=== PATIENT | female | born 1950 | race Caucasian/White ===

== ENCOUNTER 2017-08-10 05:59 | Emergency (ER) | payer MEDICARE, OTHER ==
[~2017-08-10] VITALS: Ht 162.6 cm; Wt 68.0 kg
--- NOTE | 2017-08-10 06:12 | PD ---
HPI Chief Complaint: BA Time Seen by Provider: 06:10 Travel History International Travel<30 days: No Contact w/Intl Traveler<30days: No Traveled to known affect area: No History of Present Illness HPI 67-year-old female presents under Cameron act initiated by the Police Department. According to her paperwork she was driving on the wrong side of the road and almost to the police car. She reportedly did not know where she was or how she got there and she also reportedly urinated on herself. The patient reports that she is from [facility]. She was in [place] yesterday at [email or web address] by herself. She reports that initially she went to [place] in order to do an animal correction and adopt a cat. She ended up not adopting a cat and then she spent the day at [email or web address]. She reports that she was driving home this evening and she became quite tired and pulled over on the side of the road several times. She understands that she was brought here tonight because she was driving erratically. She reports that she was driving erratically because she was tired. She seems pleasantly confused during examination. Symptoms are moderate, no obvious aggravating or alleviating factors. She reports a history of "heart, thyroid problems" and allergies to Abilify and penicillin. She reports that she lives alone in [place]. No other complaints. [facility] Social History Alcohol Use: No Tobacco Use: No Substance Use: No Allergies-Medications (Allergen,Severity, Reaction): Coded Allergies: aripiprazole (Verified Allergy, Unknown, 08/10/17) penicillin G (Verified Allergy, Unknown, 08/10/17) Reported Meds & Prescriptions Reported Meds & Active Scripts Active Reported Lasix (Furosemide) 40 Mg Tab 40 Mg PO DAILY Levothyroxine (Levothyroxine Sodium) 75 Mcg Tab 75 Mcg PO DAILY Spironolactone 25 Mg Tab 25 Mg PO DAILY Xanax (Alprazolam) 0.5 Mg Tab 0.5 Mg PO Q4H PRN Gabapentin 300 Mg Cap 300 Mg PO BID Effexor XR 24 HR (Venlafaxine HCl) 150 Mg Cap 150 Mg PO DAILY Review of Systems Except as stated in HPI: all other systems reviewed are Neg Physical Exam Narrative GENERAL: Pleasant well-developed well-nourished female no acute distress who is alert and oriented to person place and time. She is confused in regards to her ability to provide an accurate history. SKIN: Warm and dry. HEAD: Atraumatic. Normocephalic. EYES: Pupils equal and round. No scleral icterus. No injection or drainage. ENT: No nasal bleeding or discharge. Mucous membranes pink and moist. NECK: Trachea midline. No JVD. CARDIOVASCULAR: Regular rate and rhythm. No murmur appreciated. RESPIRATORY: No accessory muscle use. Clear to auscultation. Breath sounds equal bilaterally. GASTROINTESTINAL: Abdomen soft, non-tender, nondistended. Hepatic and splenic margins not palpable. MUSCULOSKELETAL: No obvious deformities. No clubbing. No cyanosis. No edema. NEUROLOGICAL: Awake and alert. No obvious cranial nerve deficits. Motor grossly within normal limits. Normal speech. PSYCHIATRIC: Appropriate mood and affect; insight and judgment normal. Data Data Last Documented VS Vital Signs Date Time Temp Pulse Resp B/P (MAP) Pulse Ox O2 Delivery O2 Flow Rate FiO2 08/11/17 17:55 08/11/17 11:00 97.8 74 18 99 Room Air Orders Orders Complete Blood Count With Diff (08/10/17 06:12) Comprehensive Metabolic Panel (08/10/17 06:12) Thyroid Stimulating Hormone (08/10/17 06:12) Urinalysis - C+S If Indicated (08/10/17 06:12) Psych Screen (08/10/17 06:12) Drug Screen, Random Urine (08/10/17 06:12) Alcohol (Ethanol) (08/10/17 06:12) Ct Brain W/O Iv Contrast(Rout) (08/10/17 ) Diet Regular Basic (08/10/17 Breakfast) Diet Regular Basic (08/10/17 Lunch) Gabapentin (Neurontin) (08/10/17 17:15) Venlafaxine Xr (Effexor Xr) (08/10/17 17:15) Gabapentin (Neurontin) (08/10/17 19:00) Furosemide (Lasix) (08/10/17 19:00) Alprazolam (Xanax) (08/10/17 19:00) Levothyroxine (Synthroid) (08/11/17 06:00) Gabapentin (Neurontin) (08/11/17 06:00) Spironolactone (Aldactone) (08/11/17 06:00) Venlafaxine Xr (Effexor Xr) (08/11/17 06:00) Furosemide (Lasix) (08/11/17 06:00) Nicotine 21 Mg Patch.24 Hr (Habitrol 21 (08/10/17 19:30) Diet Regular Basic (08/11/17 Breakfast) Diet Regular Basic (08/11/17 Lunch) Ed Discharge Order (08/11/17 16:18) Labs Laboratory Tests Test 08/10/17 06:20 White Blood Count 9.6 TH/MM3 Red Blood Count 3.81 MIL/MM3 Hemoglobin 11.1 GM/DL Hematocrit 33.4 % Mean Corpuscular Volume 87.5 FL Mean Corpuscular Hemoglobin 29.2 PG Mean Corpuscular Hemoglobin Concent 33.4 % Red Cell Distribution Width 19.0 % Platelet Count 137 TH/MM3 Mean Platelet Volume 11.8 FL Neutrophils (%) (Auto) 60.6 % Lymphocytes (%) (Auto) 24.8 % Monocytes (%) (Auto) 14.0 % Eosinophils (%) (Auto) 0.1 % Basophils (%) (Auto) 0.5 % Neutrophils # (Auto) 5.8 TH/MM3 Lymphocytes # (Auto) 2.4 TH/MM3 Monocytes # (Auto) 1.3 TH/MM3 Eosinophils # (Auto) 0.0 TH/MM3 Basophils # (Auto) 0.0 TH/MM3 CBC Comment AUTO DIFF Differential Comment AUTO DIFF CONFIRMED Platelet Estimate NORMAL Platelet Morphology Comment ENLARGED Polychromasia 2.1 % Ovalocytes 2+ Acanthocytes OCC Keratocytes OCC Urine Color LIGHT-YELLOW Urine Turbidity HAZY Urine pH 5.0 Urine Specific [place] 1.006 Urine Protein TRACE mg/dL Urine Glucose (UA) NEG mg/dL Urine Ketones NEG mg/dL Urine Occult Blood NEG Urine Nitrite NEG Urine Bilirubin NEG Urine Urobilinogen LESS THAN 2.0 MG/DL Urine Leukocyte Esterase MOD Urine RBC LESS THAN 1 /hpf Urine WBC 3 /hpf Urine Squamous Epithelial Cells 7 /hpf Urine Bacteria OCC /hpf Urine Mucus FEW /lpf Microscopic Urinalysis Comment CULT NOT INDICATED Blood Urea Nitrogen 13 MG/DL Creatinine 1.44 MG/DL Random Glucose 114 MG/DL Total Protein 8.3 GM/DL Albumin 4.0 GM/DL Calcium Level 9.1 MG/DL Alkaline Phosphatase 103 U/L Aspartate Amino Transf (AST/SGOT) 33 U/L Alanine Aminotransferase (ALT/SGPT) 21 U/L Total Bilirubin 1.0 MG/DL Sodium Level 141 MEQ/L Potassium Level 3.6 MEQ/L Chloride Level 107 MEQ/L Carbon Dioxide Level 23.3 MEQ/L Anion Gap 11 MEQ/L Estimat Glomerular Filtration Rate 36 ML/MIN Thyroid Stimulating Hormone 3rd Gen 2.100 uIU/ML Urine Opiates Screen NEG Urine Barbiturates Screen NEG Urine Amphetamines Screen NEG Urine Benzodiazepines Screen POS Urine Cocaine Screen NEG Urine Cannabinoids Screen POS Ethyl Alcohol Level LESS THAN 3 MG/DL MDM Medical Decision Making Medical Screen Exam Complete: Yes Emergency Medical Condition: Yes Medical Record Reviewed: Yes Differential Diagnosis Dementia, UTI, encephalitis, acute psychosis, substance-induced mood disorder, fatigue Narrative Course 67-year-old female presents under Cameron act for psychiatric evaluation. Mental health screening discussed with the patient. Psychiatric screen ordered. Diagnosis Primary Impression: Medical clearance for psychiatric admission Alexandre Fraser Aug 10, 2017 06:12
[2017-08-10 06:26] VITALS: BP_SYST 166; BP_SYST 180; BP_DIAS 78; BP_DIAS 83; PULSE 79; RESP 16; TEMP 98.2; O2SAT 97
[2017-08-10 06:52] LABS: AUTOMATED NEUTROPHIL # 5.8 TH/MM3 (1.8-7.7); BASOPHIL % 0.5 % (0.0-2.0); EOSINOPHIL % 0.1 % (0.0-4.0); HEMATOCRIT 33.4 % (35.0-46.0); HEMOGLOBIN 11.1 GM/DL (11.6-15.3); LYMPH % 24.8 % (9.0-44.0); LYMPHOCYTE # 2.4 TH/MM3 (1.0-4.8); MEAN CELL VOLUME 87.5 FL (80.0-100.0); MEAN CORPUSCULAR HEMOGLOBIN 29.2 PG (27.0-34.0); MEAN CORPUSCULAR HGB CONC 33.4 % (32.0-36.0); MEAN PLATELET VOLUME 11.8 FL (7.0-11.0); MONOCYTE # 1.3 TH/MM3 (0-0.9); NEUT % 60.6 % (16.0-70.0); RED BLOOD COUNT 3.81 MIL/MM3 (4.00-5.30); WHITE BLOOD COUNT 9.6 TH/MM3 (4.0-11.0)
--- NOTE | 2017-08-10 07:13 | RADRPT ---
EXAM DATE: 08/10/2017 7:07 AM EDT AGE/SEX: 67 years / Female INDICATIONS: Altered mental status CLINICAL DATA: This is the patient's initial encounter. Patient reports that signs and symptoms have been present for 1 day and indicates a pain score of 0/10. MEDICAL/SURGICAL HISTORY: None. None. RADIATION DOSE: 33.99 CTDI (mGy) COMPARISON: No prior exams available for comparison. TECHNIQUE: CT of the head without contrast. Using automated exposure control and adjustment of the mA and/or kV according to patient size, radiation dose was kept as low as reasonably achievable to ob tain optimal diagnostic quality images. FINDINGS: Cerebrum: The ventricles are normal for age. No evidence of midline shift, mass lesion, hemorrhage or acute infarction. No extraaxial fluid collections are seen. Posterior Fossa: The cerebellum and brainstem are intact. The 4th ventricle is midline. The cerebe llopontine angle is unremarkable. Extracranial: The visualized portion of the orbits is intact. Skull: The calvaria is intact. No evidence of skull fracture. CONCLUSION: 1. No acute intracranial abnormalities. Electronically signed by: Benjamin Green MD 08/10/2017 7:11 AM EDT
[2017-08-10 07:16] LABS: ALKALINE PHOSPHATASE 103 U/L (45-117); TOTAL PROTEIN 8.3 GM/DL (6.4-8.2)
[2017-08-10 07:19] LABS: ALT (GPT) 21 U/L (10-53); AST (GOT) 33 U/L (15-37); BICARBONATE 23.3 MEQ/L (21.0-32.0); BLOOD UREA NITROGEN 13 MG/DL (7-18); CALCIUM 9.1 MG/DL (8.5-10.1); CHLORIDE 107 MEQ/L (98-107); CREATININE 1.44 MG/DL (0.50-1.00); GLOMERULAR FILTRATION RATE 36 ML/MIN (>89); GLUCOSE,RANDOM 114 MG/DL (74-106); SODIUM (NA) 141 MEQ/L (136-145)
[2017-08-10 07:26] LABS: BACTERIA, URINE OCC /hpf; BILIRUBIN, URINE NEG (NEG); BLOOD, URINE NEG (NEG); GLUCOSE,URINE NEG (NEG); KETONE, URINE NEG (NEG); MUCUS URINE FEW /lpf (OCC); NITRITE,URINE NEG (NEG); SQUAMOUS EPITHELIAL CELL URINE 7 /hpf (0-5); URINE COLOR LIGHT-YELLOW (YELLW/STRAW); URINE LEUKOCYTE ESTERASE MOD (NEG)
[2017-08-10 07:47] LABS: PLATELET COUNT 137 TH/MM3 (150-450)
[2017-08-10 07:52] LABS: ACANTHOCYTES OCC (NORMAL); KERATOCYTES OCC (NORMAL); OVALOCYTES 2+ (NORMAL); POLYCHROMASIA 2.1 % (0.0-1.9)
--- NOTE | 2017-08-10 07:52 | PD ---
Physical Exam Narrative Patient was signed out to me pending CT and laboratory results. Please see previous providers note for full H&P. Data Data Last Documented VS Vital Signs Date Time Temp Pulse Resp B/P (MAP) Pulse Ox O2 Delivery O2 Flow Rate FiO2 08/10/17 06:26 98.2 79 16 166/78 (107) 97 Orders Orders Complete Blood Count With Diff (08/10/17 06:12) Comprehensive Metabolic Panel (08/10/17 06:12) Thyroid Stimulating Hormone (08/10/17 06:12) Urinalysis - C+S If Indicated (08/10/17 06:12) Psych Screen (08/10/17 06:12) Drug Screen, Random Urine (08/10/17 06:12) Alcohol (Ethanol) (08/10/17 06:12) Ct Brain W/O Iv Contrast(Rout) (08/10/17 ) Diet Regular Basic (08/10/17 Breakfast) Labs Laboratory Tests Test 08/10/17 06:20 White Blood Count 9.6 TH/MM3 Red Blood Count 3.81 MIL/MM3 Hemoglobin 11.1 GM/DL Hematocrit 33.4 % Mean Corpuscular Volume 87.5 FL Mean Corpuscular Hemoglobin 29.2 PG Mean Corpuscular Hemoglobin Concent 33.4 % Red Cell Distribution Width 19.0 % Platelet Count 137 TH/MM3 Mean Platelet Volume 11.8 FL Neutrophils (%) (Auto) 60.6 % Lymphocytes (%) (Auto) 24.8 % Monocytes (%) (Auto) 14.0 % Eosinophils (%) (Auto) 0.1 % Basophils (%) (Auto) 0.5 % Neutrophils # (Auto) 5.8 TH/MM3 Lymphocytes # (Auto) 2.4 TH/MM3 Monocytes # (Auto) 1.3 TH/MM3 Eosinophils # (Auto) 0.0 TH/MM3 Basophils # (Auto) 0.0 TH/MM3 CBC Comment AUTO DIFF Differential Comment AUTO DIFF CONFIRMED Platelet Estimate NORMAL Platelet Morphology Comment ENLARGED Polychromasia 2.1 % Ovalocytes 2+ Acanthocytes OCC Keratocytes OCC Urine Color LIGHT-YELLOW Urine Turbidity HAZY Urine pH 5.0 Urine Specific [place] 1.006 Urine Protein TRACE mg/dL Urine Glucose (UA) NEG mg/dL Urine Ketones NEG mg/dL Urine Occult Blood NEG Urine Nitrite NEG Urine Bilirubin NEG Urine Urobilinogen LESS THAN 2.0 MG/DL Urine Leukocyte Esterase MOD Urine RBC LESS THAN 1 /hpf Urine WBC 3 /hpf Urine Squamous Epithelial Cells 7 /hpf Urine Bacteria OCC /hpf Urine Mucus FEW /lpf Microscopic Urinalysis Comment CULT NOT INDICATED Blood Urea Nitrogen 13 MG/DL Creatinine 1.44 MG/DL Random Glucose 114 MG/DL Total Protein 8.3 GM/DL Albumin 4.0 GM/DL Calcium Level 9.1 MG/DL Alkaline Phosphatase 103 U/L Aspartate Amino Transf (AST/SGOT) 33 U/L Alanine Aminotransferase (ALT/SGPT) 21 U/L Total Bilirubin 1.0 MG/DL Sodium Level 141 MEQ/L Potassium Level 3.6 MEQ/L Chloride Level 107 MEQ/L Carbon Dioxide Level 23.3 MEQ/L Anion Gap 11 MEQ/L Estimat Glomerular Filtration Rate 36 ML/MIN Thyroid Stimulating Hormone 3rd Gen 2.100 uIU/ML Urine Opiates Screen NEG Urine Barbiturates Screen NEG Urine Amphetamines Screen NEG Urine Benzodiazepines Screen POS Urine Cocaine Screen NEG Urine Cannabinoids Screen POS Ethyl Alcohol Level LESS THAN 3 MG/DL MDM Supervised Visit with MARIA M: No Interpretation(s) Last Impressions Head CT 08/10/17 0000 Signed Impressions: CONCLUSION: 1. No acute intracranial abnormalities. Narrative Course Patient sleeping comfortably in bed in no acute distress. Laboratory and CT results were reviewed. Patient medically cleared for further treatment and evaluation by psych. Final disposition per psych. Diagnosis Primary Impression: Medical clearance for psychiatric admission Scripts Unable to Obtain Active Prescriptions or Reported Meds Condition: Stable Steven Hammond Aug 10, 2017 07:52
[2017-08-10] MEDS ORDERED: EFFE150C PO (14:55)
[2017-08-10] MEDS ORDERED: GABA100C4 PO (14:55)
[2017-08-10] MEDS ORDERED: VENLAFAXINE HCL XR 75 MG CAP PO ONE (17:15)
[2017-08-10] MEDS ORDERED: GABAPENTIN 100 MG CAP PO ONE ×2 (17:15→19:00)
[2017-08-10 18:37] VITALS: BP 185/79; PULSE 71; RESP 18; O2SAT 98
[2017-08-10] MEDS ORDERED: GABA300C5 PO (18:46)
[2017-08-10] MEDS ORDERED: ALPR.5 PO (18:47)
[2017-08-10] MEDS ORDERED: SPIR25TA PO (18:47)
[2017-08-10] MEDS ORDERED: LEVO75TA3 PO (18:48)
[2017-08-10] MEDS ORDERED: FURO1TAB60 PO (18:48)
[2017-08-10] MEDS ORDERED: FUROSEMIDE 40 MG TAB PO ONE (19:00)
[2017-08-10] MEDS ORDERED: ALPRAZolam 0.5 MG TAB PO ONE (19:00)
--- NOTE | 2017-08-10 19:27 | PD ---
History of Present Illness Chief Complaint: Psychiatric Symptoms Time Seen by Provider: 16:00 Travel History International Travel<30 Days: No Contact w/Intl Traveler<30days: No Known affected area: No Legal Status Legal Status: Cameron Act History of Present Illness: This is a 67-year-old , female who is brought in under Cameron act to this facility for altered mental status. Patient has not previously been seen at this facility. Reviewed electronic medical record, labs, discuss case with staff. Patient's toxicology screen is positive for benzodiazepines and cannabinoids. Perform patient evaluation in her room and J pod. Patient was found sitting on her bed awake, alert, and oriented 4. Her speech is clear, logical, and organized. There is no indication of internal stimulation nor thought blocking. Patient denies having suicidal ideation, homicidal ideation, auditory or visual hallucinations. I can elicit no delusional material nor manic symptoms at this time. Patient reports that she has a long history of bipolar disorder and claims that she is compliant with her medications. However, she did advise her emergency room RN that she had missed some of her medication. Patient reports that she lives in [place] and that yesterday she drove to [place] to an animal jail "to get a kitten". However, she relates that after looking at the kittens she realized she could not get a kitten because, "I have a dog". She then decided that she would go to [facility] or [place] since, "had not been there in a while". She reports that she states for about an hour and then states began to head back. She states that she "got tired". She does not remember the circumstances which resulted in the Cameron act. Per the Cameron act, the patient was found driving on the wrong side of the road and almost her to please cruise her head on. The officer then turned around and gave cheese with his lites and sirens on and he reports it took approximately 5 minutes for the patient to taffy puller at which time he discovered she was altered. Staff advised the patient has been appropriate during the shift today. I received her consent and contacted her son Benjamin at the number listed in the chart. He confirms that she does in fact have bipolar disorder and lives on her own. He states that she has been Cameron acted "a few times before this with the last time being a few months ago". He attempts to look in on her fairly regularly although he himself lives and [place]. Stated that she had been doing "fine all week and I did not see any erratic behavior however she does get this way when she is off of her medications. Patient is retired and lives off of Social Security. She denies any previous suicidal attempts. She states that she smokes approximately half a pack of cigarettes per day drinks socially and denies using drugs although as mentioned earlier her toxicology screen was positive for cannabinoids. The assistant community director, Toya, also advised the patient's sister called basically corroborated all the information obtained from the patient and her son. PFSH Past Medical History Hypertension: Yes Immunizations Current: Yes Thyroid Disease: Yes (Hypothyroidism) Tetanus Vaccination: Unknown Influenza Vaccination: No Psychiatric History Psychiatric History Self-reported bipolar disorder confirmed with son and sister. History of Inpatient Treatment: Yes Guns or firearms in home: No Social History Patient lives by herself reports that she has a "boyfriend that I go out with occasionally". She is retired and lives on Social Security. She has an adult son who checks in on her frequently. She is a sister who lives in [place] whom she is close with. Hx Alcohol Use: No Hx Tobacco Use: No Hx Substance Use: No Substance Use Type: Marijuana Hx of Substance Use Treatment: No Allergies-Medications (Allergen,Severity, Reaction): Coded Allergies: aripiprazole (Verified Allergy, Unknown, 08/10/17) penicillin G (Verified Allergy, Unknown, 08/10/17) Reported Meds & Prescriptions Reported Meds & Active Scripts Active Reported Lasix (Furosemide) 40 Mg Tab 40 Mg PO DAILY Levothyroxine (Levothyroxine Sodium) 75 Mcg Tab 75 Mcg PO DAILY Spironolactone 25 Mg Tab 25 Mg PO DAILY Xanax (Alprazolam) 0.5 Mg Tab 0.5 Mg PO Q4H PRN Gabapentin 300 Mg Cap 300 Mg PO BID Effexor XR 24 HR (Venlafaxine HCl) 150 Mg Cap 150 Mg PO DAILY Review of Systems Except as stated in HPI: all other systems reviewed are Neg Mental Status Examination Appearance: Disheveled Consciousness: Alert Orientation: x4 Motor Activity: Normal gait Speech: Unremarkable Language: Adequate Fund of Knowledge: Adequate Attention and Concentration: Adequate Memory: Unremarkable Mood: Appropriate, Good Affect: Appropriate, Euthymic Thought Process & Associations: Intact Thought Content: Appropriate Hallucination Type: None Delusion Type: None Suicidal Ideation: No Suicidal Plan: No Suicidal Intention: No Homicidal Ideation: No Homicidal Plan: No Homicidal Intention: No Insight: Fair Judgment: Impulsive MDM Medical Decision Making Medical Record Reviewed: Yes Assessment/Plan Patient to be watched overnight and J pod. Hopeful the Cameron act to be lifted tomorrow and patient's family will arrive to take her back home. Her medication list was obtained from her pharmacy at [facility] and [place]. I have ordered her routine medications for tonight and tomorrow morning at which time she will be reevaluated. Her family will be in contact to make arrangements to return her to the [facility]. Orders Orders Complete Blood Count With Diff (08/10/17 06:12) Comprehensive Metabolic Panel (08/10/17 06:12) Thyroid Stimulating Hormone (08/10/17 06:12) Urinalysis - C+S If Indicated (08/10/17 06:12) Psych Screen (08/10/17 06:12) Drug Screen, Random Urine (08/10/17 06:12) Alcohol (Ethanol) (08/10/17 06:12) Ct Brain W/O Iv Contrast(Rout) (08/10/17 ) Diet Regular Basic (08/10/17 Breakfast) Diet Regular Basic (08/10/17 Lunch) Gabapentin (Neurontin) (08/10/17 17:15) Venlafaxine Xr (Effexor Xr) (08/10/17 17:15) Gabapentin (Neurontin) (08/10/17 19:00) Furosemide (Lasix) (08/10/17 19:00) Alprazolam (Xanax) (08/10/17 19:00) Levothyroxine (Synthroid) (08/11/17 06:00) Gabapentin (Neurontin) (08/11/17 06:00) Spironolactone (Aldactone) (08/11/17 06:00) Venlafaxine Xr (Effexor Xr) (08/11/17 06:00) Furosemide (Lasix) (08/11/17 06:00) Results Vital Signs Date Time Temp Pulse Resp B/P (MAP) Pulse Ox O2 Delivery O2 Flow Rate FiO2 08/10/17 18:37 71 18 185/79 (114) 98 08/10/17 06:26 98.2 79 16 166/78 (107) 97 Laboratory Tests Test 08/10/17 06:20 White Blood Count 9.6 Red Blood Count 3.81 Hemoglobin 11.1 Hematocrit 33.4 Mean Corpuscular Volume 87.5 Mean Corpuscular Hemoglobin 29.2 Mean Corpuscular Hemoglobin Concent 33.4 Red Cell Distribution Width 19.0 Platelet Count 137 Mean Platelet Volume 11.8 Neutrophils (%) (Auto) 60.6 Lymphocytes (%) (Auto) 24.8 Monocytes (%) (Auto) 14.0 Eosinophils (%) (Auto) 0.1 Basophils (%) (Auto) 0.5 Neutrophils # (Auto) 5.8 Lymphocytes # (Auto) 2.4 Monocytes # (Auto) 1.3 Eosinophils # (Auto) 0.0 Basophils # (Auto) 0.0 CBC Comment AUTO DIFF Differential Comment AUTO DIFF CONFIRMED Platelet Estimate NORMAL Platelet Morphology Comment ENLARGED Polychromasia 2.1 Ovalocytes 2+ Acanthocytes OCC Keratocytes OCC Urine Color LIGHT-YELLOW Urine Turbidity HAZY Urine pH 5.0 Urine Specific [place] 1.006 Urine Protein TRACE Urine Glucose (UA) NEG Urine Ketones NEG Urine Occult Blood NEG Urine Nitrite NEG Urine Bilirubin NEG Urine Urobilinogen LESS THAN 2.0 Urine Leukocyte Esterase MOD Urine RBC LESS THAN 1 Urine WBC 3 Urine Squamous Epithelial Cells 7 Urine Bacteria OCC Urine Mucus FEW Microscopic Urinalysis Comment CULT NOT INDICATED Blood Urea Nitrogen 13 Creatinine 1.44 Random Glucose 114 Total Protein 8.3 Albumin 4.0 Calcium Level 9.1 Alkaline Phosphatase 103 Aspartate Amino Transf (AST/SGOT) 33 Alanine Aminotransferase (ALT/SGPT) 21 Total Bilirubin 1.0 Sodium Level 141 Potassium Level 3.6 Chloride Level 107 Carbon Dioxide Level 23.3 Anion Gap 11 Estimat Glomerular Filtration Rate 36 Thyroid Stimulating Hormone 3rd Gen 2.100 Urine Opiates Screen NEG Urine Barbiturates Screen NEG Urine Amphetamines Screen NEG Urine Benzodiazepines Screen POS Urine Cocaine Screen NEG Urine Cannabinoids Screen POS Ethyl Alcohol Level LESS THAN 3 Diagnosis Primary Impression: Medical clearance for psychiatric admission Additional Impression: Bipolar disorder Condition: Stable Problem Qualifiers Judith Mccarthy Aug 10, 2017 19:27
[2017-08-10] MEDS ORDERED: NICOTINE 21 MG/24 HR PATCH T-DERMAL ONE (19:30)
[2017-08-10 23:54] VITALS: BP 165/74; PULSE 79; RESP 18; O2SAT 97
[2017-08-11] MEDS ORDERED: LEVOTHYROXINE SODIUM 75 MCG TAB PO ONE (06:00)
[2017-08-11] MEDS ORDERED: VENLAFAXINE HCL XR 75 MG CAP PO ONE (06:00)
[2017-08-11] MEDS ORDERED: SPIRONOLACTONE 25 MG TAB PO ONE (06:00)
[2017-08-11] MEDS ORDERED: FUROSEMIDE 40 MG TAB PO ONE (06:00)
[2017-08-11] MEDS ORDERED: GABAPENTIN 300 MG CAP PO ONE (06:00)
--- NOTE | 2017-08-11 10:53 | PD ---
History of Present Illness Chief Complaint: Psychiatric Symptoms Time Seen by Provider: 10:35 Travel History International Travel<30 Days: No Contact w/Intl Traveler<30days: No Known affected area: No Legal Status Legal Status: Cameron Act Cameron Act Signed By: Alfredo Perez Cameron Act Comment: 2017 @ 0550 History of Present Illness: History of Present Illness HPI 24-year-old female presents under Cameron act initiated by the Police Department. According to her paperwork the patient recently started dating someone online. She felt ignored by this person and she reportedly sent him suicidal text in which she said that she had a knife and she was going kill herself. She did cause herself superficial lacerations to the right arm. She reports that she did this because makes her feel better when she cut herself. Symptoms are moderate, aggravated by feelings of depression with no alleviating factors. Denies any drug or alcohol use. No other complaints at this time. She does report a history of depression for which she was previously prescribed Lexapro and Abilify but she ran out of them at an unknown time. Last tetanus vaccination unknown. TC to her son at [phone]. Unable to leave a message. PFSH Past Medical History Hypertension: Yes Immunizations Current: Yes Thyroid Disease: Yes (Hypothyroidism) Tetanus Vaccination: Unknown Influenza Vaccination: No Psychiatric History Psychiatric History Hx Psychiatric Treatment: BI- POLAR DISORDER, DEPRESSION History of Inpatient Treatment: Yes Guns or firearms in home: No Social History Hx Alcohol Use: No Hx Tobacco Use: No Hx Substance Use: No Substance Use Type: Marijuana Hx of Substance Use Treatment: No Allergies-Medications (Allergen,Severity, Reaction): Coded Allergies: aripiprazole (Verified Allergy, Unknown, 08/10/17) penicillin G (Verified Allergy, Unknown, 08/10/17) Reported Meds & Prescriptions Reported Meds & Active Scripts Active Reported Lasix (Furosemide) 40 Mg Tab 40 Mg PO DAILY Levothyroxine (Levothyroxine Sodium) 75 Mcg Tab 75 Mcg PO DAILY Spironolactone 25 Mg Tab 25 Mg PO DAILY Xanax (Alprazolam) 0.5 Mg Tab 0.5 Mg PO Q4H PRN Gabapentin 300 Mg Cap 300 Mg PO BID Effexor XR 24 HR (Venlafaxine HCl) 150 Mg Cap 150 Mg PO DAILY Mental Status Examination Appearance: Disheveled Consciousness: Alert Orientation: x4 Motor Activity: Normal gait Speech: Unremarkable Language: Adequate Fund of Knowledge: Adequate Attention and Concentration: Adequate Memory: Unremarkable Mood: Appropriate, Good Affect: Appropriate, Euthymic Thought Process & Associations: Intact Thought Content: Appropriate Hallucination Type: None Delusion Type: None Suicidal Ideation: No Suicidal Plan: No Suicidal Intention: No Homicidal Ideation: No Homicidal Plan: No Homicidal Intention: No Insight: Fair Judgment: Impulsive MDM Orders Orders Diet Regular Basic (08/10/17 Lunch) Gabapentin (Neurontin) (08/10/17 17:15) Venlafaxine Xr (Effexor Xr) (08/10/17 17:15) Gabapentin (Neurontin) (08/10/17 19:00) Furosemide (Lasix) (08/10/17 19:00) Alprazolam (Xanax) (08/10/17 19:00) Levothyroxine (Synthroid) (08/11/17 06:00) Gabapentin (Neurontin) (08/11/17 06:00) Spironolactone (Aldactone) (08/11/17 06:00) Venlafaxine Xr (Effexor Xr) (08/11/17 06:00) Furosemide (Lasix) (08/11/17 06:00) Nicotine 21 Mg Patch.24 Hr (Habitrol 21 (08/10/17 19:30) Diet Regular Basic (08/11/17 Breakfast) Results Vital Signs Date Time Temp Pulse Resp B/P (MAP) Pulse Ox O2 Delivery O2 Flow Rate FiO2 08/10/17 23:54 79 18 165/74 (104) 97 Room Air 08/10/17 18:37 71 18 185/79 (114) 98 Diagnosis Primary Impression: Medical clearance for psychiatric admission Additional Impression: Bipolar disorder Condition: Stable Problem Qualifiers Additional Impression: Bipolar disorder Qualified Codes: F31.70 - Bipolar disorder, currently in remission, most recent episode unspecified Kayli StrattonP Aug 11, 2017 10:53
[2017-08-11 11:00] VITALS: BP 138/74; PULSE 74; RESP 18; TEMP 97.8; O2SAT 99
--- NOTE | 2017-08-11 16:20 | PD ---
Physical Exam Date Seen by Provider: Aug 11, 2017 Time Seen by Provider: 16:19 Narrative For full history and physical examination please see previous notes. Data Data Last Documented VS Vital Signs Date Time Temp Pulse Resp B/P (MAP) Pulse Ox O2 Delivery O2 Flow Rate FiO2 08/11/17 11:00 97.8 74 18 138/74 (95) 99 Room Air Orders Orders Complete Blood Count With Diff (08/10/17 06:12) Comprehensive Metabolic Panel (08/10/17 06:12) Thyroid Stimulating Hormone (08/10/17 06:12) Urinalysis - C+S If Indicated (08/10/17 06:12) Psych Screen (08/10/17 06:12) Drug Screen, Random Urine (08/10/17 06:12) Alcohol (Ethanol) (08/10/17 06:12) Ct Brain W/O Iv Contrast(Rout) (08/10/17 ) Diet Regular Basic (08/10/17 Breakfast) Diet Regular Basic (08/10/17 Lunch) Gabapentin (Neurontin) (08/10/17 17:15) Venlafaxine Xr (Effexor Xr) (08/10/17 17:15) Gabapentin (Neurontin) (08/10/17 19:00) Furosemide (Lasix) (08/10/17 19:00) Alprazolam (Xanax) (08/10/17 19:00) Levothyroxine (Synthroid) (08/11/17 06:00) Gabapentin (Neurontin) (08/11/17 06:00) Spironolactone (Aldactone) (08/11/17 06:00) Venlafaxine Xr (Effexor Xr) (08/11/17 06:00) Furosemide (Lasix) (08/11/17 06:00) Nicotine 21 Mg Patch.24 Hr (Habitrol 21 (08/10/17 19:30) Diet Regular Basic (08/11/17 Breakfast) Diet Regular Basic (08/11/17 Lunch) Ed Discharge Order (08/11/17 16:18) Labs Laboratory Tests Test 08/10/17 06:20 White Blood Count 9.6 TH/MM3 Red Blood Count 3.81 MIL/MM3 Hemoglobin 11.1 GM/DL Hematocrit 33.4 % Mean Corpuscular Volume 87.5 FL Mean Corpuscular Hemoglobin 29.2 PG Mean Corpuscular Hemoglobin Concent 33.4 % Red Cell Distribution Width 19.0 % Platelet Count 137 TH/MM3 Mean Platelet Volume 11.8 FL Neutrophils (%) (Auto) 60.6 % Lymphocytes (%) (Auto) 24.8 % Monocytes (%) (Auto) 14.0 % Eosinophils (%) (Auto) 0.1 % Basophils (%) (Auto) 0.5 % Neutrophils # (Auto) 5.8 TH/MM3 Lymphocytes # (Auto) 2.4 TH/MM3 Monocytes # (Auto) 1.3 TH/MM3 Eosinophils # (Auto) 0.0 TH/MM3 Basophils # (Auto) 0.0 TH/MM3 CBC Comment AUTO DIFF Differential Comment AUTO DIFF CONFIRMED Platelet Estimate NORMAL Platelet Morphology Comment ENLARGED Polychromasia 2.1 % Ovalocytes 2+ Acanthocytes OCC Keratocytes OCC Urine Color LIGHT-YELLOW Urine Turbidity HAZY Urine pH 5.0 Urine Specific [place] 1.006 Urine Protein TRACE mg/dL Urine Glucose (UA) NEG mg/dL Urine Ketones NEG mg/dL Urine Occult Blood NEG Urine Nitrite NEG Urine Bilirubin NEG Urine Urobilinogen LESS THAN 2.0 MG/DL Urine Leukocyte Esterase MOD Urine RBC LESS THAN 1 /hpf Urine WBC 3 /hpf Urine Squamous Epithelial Cells 7 /hpf Urine Bacteria OCC /hpf Urine Mucus FEW /lpf Microscopic Urinalysis Comment CULT NOT INDICATED Blood Urea Nitrogen 13 MG/DL Creatinine 1.44 MG/DL Random Glucose 114 MG/DL Total Protein 8.3 GM/DL Albumin 4.0 GM/DL Calcium Level 9.1 MG/DL Alkaline Phosphatase 103 U/L Aspartate Amino Transf (AST/SGOT) 33 U/L Alanine Aminotransferase (ALT/SGPT) 21 U/L Total Bilirubin 1.0 MG/DL Sodium Level 141 MEQ/L Potassium Level 3.6 MEQ/L Chloride Level 107 MEQ/L Carbon Dioxide Level 23.3 MEQ/L Anion Gap 11 MEQ/L Estimat Glomerular Filtration Rate 36 ML/MIN Thyroid Stimulating Hormone 3rd Gen 2.100 uIU/ML Urine Opiates Screen NEG Urine Barbiturates Screen NEG Urine Amphetamines Screen NEG Urine Benzodiazepines Screen POS Urine Cocaine Screen NEG Urine Cannabinoids Screen POS Ethyl Alcohol Level LESS THAN 3 MG/DL MDM Medical Record Reviewed: Yes Supervised Visit with MARIA M: No Narrative Course Patient was seen and evaluated emergency department, medically cleared. She was then seen and evaluated by psychiatry. Cameron act was lifted. Patient will be discharged to the care of her son who is coming to pick her up. Diagnosis Primary Impression: Bipolar disorder Qualified Codes: F31.70 - Bipolar disorder, currently in remission, most recent episode unspecified Referrals: Primary Care Physician 2 days Patient Instructions: General Instructions, Bipolar Disorder (ED) Departure Forms: Tests/Procedures Additional Instruction: Follow-up with your primary doctor Return to emergency department for any new or worsening symptoms Med/Other Pt SpecificInfo: No Change to Meds Disposition: 01 DISCHARGE HOME Condition: Stable Suki Storey [facility] Aug 11, 2017 16:20
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
== END 2017-08-11 17:57 | disposition home or self-care (01) ==
LOC: NEPD 05:59 → NEPJ 08-11 17:57
DX: F31.71 Bipolar disorder, in partial remission, most recent episode hypomanic (principal); E03.9 Hypothyroidism, unspecified; I10 Essential (primary) hypertension; Z79.899 Other long term (current) drug therapy
CPT/HCPCS: 70450; 80053; 80307; 81001; 84443; 85025; 99284